=== PATIENT | male | born 1965 | race Caucasian/White ===

== ENCOUNTER 2020-04-23 15:52 | Outpatient (CLI) | payer OTHER, SELFPAY | END 2020-04-23 15:53 | disposition home or self-care (01) | LOC: ANHCOVIDVC 15:52 | PROVIDERS: PCP Internal Medicine | DX: Z23 Encounter for immunization (principal) | CPT/HCPCS: 0001A; 91300 ==

== ENCOUNTER 2020-05-14 15:52 | Outpatient (CLI) | payer OTHER, SELFPAY | END 2020-05-14 15:53 | disposition home or self-care (01) | LOC: ANHCOVIDVC 15:52 | PROVIDERS: PCP Internal Medicine | DX: Z23 Encounter for immunization (principal) | CPT/HCPCS: 0002A; 91300 ==

== ENCOUNTER 2020-08-28 12:17 | Outpatient (CLI) | payer OTHER, SELFPAY ==
--- NOTE | ~2020-08-28 | XR_ITS ---
EXAMINATION: XR abdomen/kub 1V INDICATION: Left flank pain TECHNIQUE: Supine views of the abdomen were obtained on 2 radiographs. COMPARISON: 05/04/2018 FINDINGS: A punctate left kidney stone seen on the comparison examination is no longer evident. No ur olithiasis is identified. There are phleboliths of the pelvis. The bowel gas pattern is normal. Calci fications are noted in the prostate. There is moderate left and mild right hip osteoarthritis. IMPRESSION: 1. No urolithiasis identified. Reviewed, dictated and finalized at location B.
== END 2020-08-28 12:18 | disposition home or self-care (01) ==
LOC: ANHIMG 12:24
PROVIDERS: PCP Internal Medicine; Visit Provider Internal Medicine
DX: N20.0 Calculus of kidney (principal)
CPT/HCPCS: 74018

== ENCOUNTER → 2020-11-28 03:01 | Outpatient (CLI) | payer BC, SELFPAY ==
[2020-11-28 17:42] LABS: SARS-CoV-2 RNA PCR Negative
== END ==
PROVIDERS: PCP Internal Medicine; Visit Provider Internal Medicine
DX: R68.89 Other general symptoms and signs (principal); Z20.822 Contact with and (suspected) exposure to COVID-19
CPT/HCPCS: C9803; U0003; U0005

== ENCOUNTER 2021-07-30 11:36 | Outpatient (CLI) | payer BC, SELFPAY ==
[2021-07-30 12:41] LABS: Alanine Aminotransferase 27 U/L (6-50); Albumin Level 4.3 g/dL (3.5-5.1); Alkaline Phosphatase 75 U/L (38-126); Anion Gap 8 mmol/L (8-16); Aspartate Amino Transferase 29 U/L (17-59); Blood Urea Nitrogen 15 mg/dL (9-20); Calcium 8.6 mg/dL (8.4-10.2); Carbon Dioxide 27 mmol/L (22-30); Chloride 104 mmol/L (98-107); Cholesterol 152 mg/dL (0-200); Estimated Glomerular Filt Rate > 60; Glucose 108 mg/dL (65-110); HDL Direct 39 mg/dL; Potassium 4.5 mmol/L (3.4-5.0); Sodium 139 mmol/L (137-145); Triglycerides 167 mg/dL (<150)
[2021-07-30 12:52] LABS: LDL Cholesterol Direct 77 mg/dL
[2021-07-30 13:11] LABS: Prostate Specific Antigen 1.7 ng/mL (< OR = 4.0)
[2021-07-30 13:12] LABS: Hemoglobin A1C 6.8 % (<5.7)
== END 2021-07-30 11:37 | disposition home or self-care (01) ==
LOC: ANHLAB 11:40
PROVIDERS: PCP Internal Medicine; Visit Provider Nurse Practitioner
DX: Z12.5 Encounter for screening for malignant neoplasm of prostate (principal); E11.9 Type 2 diabetes mellitus without complications; E78.5 Hyperlipidemia, unspecified
CPT/HCPCS: 36415; 80053; 80061; 83036; 84153; G0103

== ENCOUNTER 2021-11-05 11:41 | Emergency (ER) | payer BC, SELFPAY ==
--- NOTE | ~2021-11-05 | XR_ITS ---
EXAMINATION: XR lumbar spine 2-3V DATE: 11/05/2021 12:16 INDICATION: Right low back pain TECHNIQUE: Anteroposterior and lateral views of the lumbar spine, and cone-down lateral view of the l umbosacral junction were obtained. COMPARISON: None. FINDINGS: Bone alignment is normal. There is no fracture. The vertebral body heights are normal. Ther e is mild loss of intervertebral disc space height throughout the lumbar spine. Small degenerative os teophytes project from the anterior endplates of multiple vertebral bodies. There is mild facet osteo arthritis of the lower lumbar spine. IMPRESSION: 1. Mild lumbar spondylosis without acute findings. Reviewed, dictated and finalized at location A.
--- NOTE | 2021-11-05 11:47 | ED.BACK ---
HPI - Back Pain/Injury General Chief Complaint: Back Pain/Injury Stated Complaint: lower back pain Time Seen by Provider: 11/05/21 11:55 Source: patient Mode of arrival: ambulatory Limitations: no limitations History of Present Illness HPI Narrative: Mr. Benton is a 55-year-old male patient presenting to the clinic today with complaints of low back pain x2 days. He reports that he has most pain with bending and walking. He reports that he feels as though his back is spasming at times. He denies any radiation of pain down his legs. He denies any saddle anesthesia or loss of bowel or bladder. Related Data Allergies Allergy/AdvReac Type Severity Reaction Status Date / Time No Known Allergies Allergy Verified 11/05/21 11:44 Review of Systems Review of Systems: Pertinent positives per HPI. Patient denies any fever, chills, rash, headache, visual changes, dizziness, cough, runny nose, sore throat, shortness of breath, chest pain, palpitations, nausea, vomiting, diarrhea, constipation, abdominal pain, or any urinary issues. [facility] Past Medical History Medical History Bilateral knee pain Degenerative arthritis of knee, bilateral Depression, controlled Hemoglobin A1c greater than 8.0 percent 04/11/20 A1c = 8.2 Nephrolithiasis Other and unspecified hyperlipidemia Type 2 diabetes mellitus without complication, without long-term current use of insulin Family History Family History Mother Patient's mother is in good health Father Family history of diabetes mellitus in first degree relative Social History Social History Smoking packs per day: 1 Smoking cigarettes per day: 20.0 Years smoked: 8 Smoking pack-years: 8.00 Smoking status: Former smoker Tobacco type: cigarettes Second hand tobacco smoke exposure: Yes Smoking end date: 02/08/09 Alcohol intake: current Alcohol use details: Social Substance use: never Additional occupation/education comments: [employer] Gender identity (if verbalized by the patient): Male Sexual Orientation (if Verbalized by the Patient): Straight or Heterosexual Comments At the time of my signature, I reviewed and agree with the nursing past medical, surgical, social, and family history. There is no relevant family history pertinent to the patient complaint. Exam Narrative: General: Well-developed, well nourished, in no apparent distress Head: Normocephalic, atraumatic. Cardio: Regular rate and rhythm, s1 and s2 normal, no murmur appreciated. Resp: Clear to auscultation bilaterally, no rhonchi, rales, wheezing or rubs. Musculoskeletal: No deformity, tender to palpation over the right paraspinous muscles, grossly normal range of motion, straight leg test is positive bilaterally at approximately 60 degrees, bilateral lower muscle strength strong and equal, negative foot drop ,peripheral pulse strong, no edema, no cyanosis, normal gait and station Course Course Emergency Course: Portions of this record may have been created with voice recognition software. Level of Care: Express Care Visit Vital Signs Vital signs: Vital Signs Temperature 35.9 C L 11/05/21 11:50 Pulse Rate 59 L 11/05/21 11:50 Respiratory Rate 16 11/05/21 11:50 Blood Pressure 134/96 H 11/05/21 11:50 Pulse Oximetry 99 11/05/21 11:50 Oxygen Delivery Room Air 11/05/21 11:50 Temperature 35.9 C L 11/05/21 11:50 Pulse Rate 59 L 11/05/21 11:50 Respiratory Rate 16 11/05/21 11:50 Blood Pressure 134/96 H 11/05/21 11:50 Pulse Oximetry 99 11/05/21 11:50 Oxygen Delivery Room Air 11/05/21 11:50 Vital signs reviewed MDM - Back Pain/Injury MDM Narrative Medical decision making narrative: At the time of visit patient is resting comfortably on the exam table. X-ray was completed of the
[2021-11-05 11:50] VITALS: BP 134/96; PULSE 59; RESP 16; TEMP 35.9; O2SAT 99
== END 2021-11-05 12:48 | disposition home or self-care (01) ==
PROVIDERS: Emergency Provider Nurse Practitioner Family
DX: S39.012A Strain of muscle, fascia and tendon of lower back, initial encounter (principal); X58.XXXA Exposure to other specified factors, initial encounter; M17.0 Bilateral primary osteoarthritis of knee; E11.9 Type 2 diabetes mellitus without complications; Z87.891 Personal history of nicotine dependence; E78.5 Hyperlipidemia, unspecified
CPT/HCPCS: 72100; 99213; G0463

== ENCOUNTER → 2022-04-21 16:04 | Outpatient (CLI) | payer BC, SELFPAY ==
--- NOTE | ~2022-04-21 | MR_ITS ---
MRI of the left knee Clinical history: Pain Technique: Coronal proton density and proton density-weighted images, sagittal proton-density and T2 fat-sat images, and axial proton-density fat-saturated images were acquired. Findings: Anterior and posterior cruciate ligaments are intact. Medial collateral ligament and the la teral collateral ligament complex are intact. Popliteus tendon is intact. There is large horizontal tear involving the posterior horn and body of the medial meniscus, with par tial maceration of the body segment. There is partial extrusion of the body of the medial meniscus in to the medial gutter. No lateral meniscal tear evident. 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 There is patchy moderate chondro malacia at the central aspect of the femoral trochlea. There is minimal chondromalacia of the patella and lateral compartment. Tricompartmental osteophytes are present, most prominent at the medial join t line. Extensor mechanism is intact. Minimal joint effusion present. 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 Impression: Large horizontal tear of the posterior horn and body of the medial meniscus with superimposed complex tearing/maceration of the body segment of particular. Advanced degenerative change of the medial compartment, as detailed above. Mild degenerative change o f the lateral and patellofemoral compartments. [id number] Ramachandran's cyst with multiple loose bodies in the Ramachandran's cyst measuring up to 1 cm in diameter. Reviewed, dictated and finalized at location . Impression: Large horizontal tear of the posterior horn and body of the medial meniscus wit h superimposed complex tearing/maceration of the body segment of particular. Advanced degenerative change of the medial compartment, as detailed above. Mild degenerative change of the lateral and patellofemoral compartments. [id number] Ramachandran's cyst with multiple loose bodies in the Ramachandran's cyst m easuring up to 1 cm in diameter.
--- NOTE | ~2022-04-21 | MR_ITS ---
MRI of the right knee Clinical history: Pain Technique: Coronal proton density and proton density-weighted images, sagittal proton-density and T2 fat-sat images, and axial proton-density fat-saturated images were acquired. Findings: Anterior and posterior cruciate ligaments are intact. Medial collateral ligament and the la teral collateral ligament complex are intact. Popliteus tendon is intact. There is complex tearing with a macerated appearance involving the posterior horn and body of the med ial meniscus. No lateral meniscal tear evident. There is diffuse high-grade chondromalacia of the medial compartment. Lateral compartment articular c artilage is well preserved. There is patchy mild to moderate chondromalacia the central aspect of the femoral trochlea. Patellar articular cartilage is well preserved. Tricompartmental osteophytes are p resent, most prominent at the medial and lateral joint lines. Extensor mechanism is intact. Small joint effusion present with minimal Ramachandran's cyst. There are sever al loose bodies at the posterior aspect of the joint centrally, posterior to the PCL, measuring up to 1 cm in maximum diameter. Impression: Extensive complex tearing of the posterior horn and body of the medial meniscus, as detailed above. Advanced degenerative change of the medial compartment, as detailed above. Mild degenerative change o f the lateral and patellofemoral compartments. Small joint effusion with several loose bodies posteriorly, posterior to the PCL. Reviewed, dictated and finalized at location . Impression: Extensive complex tearing of the posterior horn and body of the medial meniscus , as detailed above. Advanced degenerative change of the medial compartment, as detailed above. Mild degenerative change of the lateral and patellofemoral compartments. Small joint effusion with several loose bodies posteriorly, posterior to the PC L.
== END ==
PROVIDERS: PCP Nurse Practitioner; Visit Provider Nurse Practitioner
DX: M25.562 Pain in left knee (principal); M25.561 Pain in right knee; S83.241A Other tear of medial meniscus, current injury, right knee, initial encounter; M25.461 Effusion, right knee; M23.41 Loose body in knee, right knee; M71.22 Synovial cyst of popliteal space [Baker], left knee
CPT/HCPCS: 73721

== ENCOUNTER 2023-03-11 14:15 | Outpatient (CLI) | payer BC, SELFPAY | END 2023-03-11 14:16 | disposition home or self-care (01) | LOC: ANHAUDIO 14:15 | PROVIDERS: PCP Nurse Practitioner; Visit Provider Otolaryngology | DX: H90.3 Sensorineural hearing loss, bilateral (principal); H69.92 Unspecified Eustachian tube disorder, left ear; E11.9 Type 2 diabetes mellitus without complications | CPT/HCPCS: 92557; 92567 ==

== ENCOUNTER 2023-04-15 06:37 | Outpatient (CLI) | payer BC, SELFPAY ==
--- NOTE | ~2023-04-15 | MR_ITS ---
EXAMINATION: MR IAC wo/w con DATE: 04/15/2023 07:37 INDICATION: Sensorineural hearing loss, unilateral, left . TECHNIQUE: Magnetic resonance imaging (MRI) of the brain, brainstem, and internal auditory canals was performed without and with 20 mL MultiHance intravenous contrast. COMPARISON: None. FINDINGS: There are scattered areas of nonspecific increased T2-weighted signal intensity in the cere bral white matter, which is within normal limits for the patient's age. There is no intracranial hemo rrhage, acute infarction, or abnormal intracranial mass lesion. The ventricles are normal in size. Th ere is mild mucosal thickening in the paranasal sinuses. There is a trace right mastoid effusion. The internal auditory canals, inner ears, and tympanic cavities are normal. The orbits are normal. IMPRESSION: 1. Normal aging brain. Reviewed, dictated and finalized at location E. ATTENDANT IMPRESSION: 1. Normal aging brain.
== END 2023-04-15 06:38 | disposition home or self-care (01) ==
PROVIDERS: PCP Nurse Practitioner; Visit Provider Otolaryngology
DX: H90.42 Sensorineural hearing loss, unilateral, left ear, with unrestricted hearing on the contralateral side (principal)
CPT/HCPCS: 70553; A9577